=== PATIENT | female | born 1985 | race Two or more races ===

== ENCOUNTER 2017-10-22 17:59 | Emergency (ER) | payer MEDICAID, OTHER ==
[~2017-10-22] VITALS: Ht 182.9 cm; Wt 90.7 kg
[2017-10-22 18:16] VITALS: BP 124/85
[2017-10-22] MEDS ORDERED: ACETAMINOPHEN 325 MG TAB PO ONE ×2 (18:16→18:30)
[2017-10-22] MEDS ORDERED: IBUPROFEN 600 MG TAB PO ONE ×2 (21:39→21:45)
[2017-10-22] MEDS ORDERED: cefTRIAXone SOD 1,000 MG VL IM ONE (21:45)
== END 2017-10-22 21:47 | disposition home or self-care (01) ==
LOC: EDSEX → ER 17:59
DX: J02.0 Streptococcal pharyngitis (principal)
CPT/HCPCS: 96372; 99283; J0696

== ENCOUNTER 2018-01-14 11:13 | Emergency (ER) | payer MEDICAID, OTHER ==
[~2018-01-14] VITALS: Ht 175.3 cm; Wt 95.3 kg
[2018-01-14 12:06] VITALS: BP 117/85
[2018-01-14 12:43] LABS: Basophils # (auto) 0.1 uL; Monocytes # (auto) 0.6 uL; Nucleated Red Blood Cells % 0.2 %; Red Cell Distribution Width 13.6 % (11.8-14.3); White Blood Cell 8.7 10^3/uL (4.4-10.8)
[2018-01-14 12:44] LABS: Basophils % (auto) 0.9 % (0.0-2.0); Eosinophils # (auto) 0.5 uL; Eosinophils % (auto) 5.4 % (0.0-7.0); Hematocrit 44.5 % (41.0-53.0); Lymphocytes # (auto) 3.6 uL; Lymphocytes % (auto) 41.2 % (10.0-50.0); Mean Corpuscular Hemoglobin 26.5 pg (28.0-32.0); Mean Corpuscular Hgb Conc. 33.7 g/dL (32.0-36.0); Mean Corpuscular Volume 78.6 fL (80.0-100.0); Monocytes % (auto) 6.8 % (0.0-12.0); Neutrophils % (auto) 45.7 % (37.0-80.0); Platelet Count (auto) 196 10^3/uL (140-450); Red Blood Cells 5.67 10^6/uL (4.5-5.90)
[2018-01-14 13:01] LABS: Albumin 4.4 g/dL (3.4-5.0); BUN/Creatinine Ratio 16.5; Calcium 9.4 mg/dL (8.5-10.1); Potassium 4.1 mmol/L (3.5-5.1)
[2018-01-14 13:09] LABS: Bilirubin, Total 0.6 mg/dL (0.2-1.0); Total Protein 8.4 g/dL (6.4-8.2)
== END 2018-01-14 12:30 | disposition left against medical advice (07) ==
LOC: ER 11:13 → EDSEX 11:13 → ER 12:30
DX: Z00.00 Encounter for general adult medical examination without abnormal findings (principal); Z53.21 Procedure and treatment not carried out due to patient leaving prior to being seen by health care provider
CPT/HCPCS: 36415; 80053; 85025

== ENCOUNTER 2021-11-10 22:07 | Emergency (ER) | payer MEDICAID, OTHER ==
[~2021-11-10] VITALS: Ht 180.3 cm; Wt 108.9 kg
[2021-11-10 22:07] VITALS: BP 146/90
== END 2021-11-11 07:13 | disposition left against medical advice (07) ==
LOC: ER 22:11
DX: R07.89 Other chest pain (principal); Z53.21 Procedure and treatment not carried out due to patient leaving prior to being seen by health care provider
CPT/HCPCS: 93005